=== PATIENT | female | born 1995 | race African-American/Black ===

== ENCOUNTER 2016-06-22 18:23 | Emergency (ER) | payer OTHER ==
[~2016-06-22] VITALS: Ht 170.2 cm; Wt 104.5 kg
[~2016-06-22 18:23] MED LIST: ZOVI400T15 PO
[2016-06-22 18:27] VITALS: BP 111/65; PULSE 90; RESP 16; TEMP 98.1; O2SAT 99
== END 2016-06-22 19:34 | disposition left against medical advice (07) ==
LOC: NED 18:23
DX: R30.0 Dysuria (principal)
CPT/HCPCS: 99281

== ENCOUNTER 2016-10-18 23:49 | Emergency (ER) | payer OTHER ==
[2016-10-18 23:50] VITALS: BP 139/83; PULSE 78; RESP 16; TEMP 98.7; O2SAT 98
[2016-10-19 02:24] VITALS: BP 129/81; PULSE 80; RESP 19; TEMP 98.5; O2SAT 99
--- NOTE | 2016-10-19 03:56 | PD ---
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 She reports that she is sexually active. She reports that she does not use condoms. She reports that she has not been with any new partners and is not concerned about sexually transmitted infections. The patient denies having any vaginal discharge associated with this. She reports that the bump became more painful today, thus prompting the visit to the emergency department. A review of systems, the patient denies any recent fevers, cough, congestion, neck pain, chest pain, shortness of breath, abdominal pain, vomiting, urinary symptoms, or neurologic symptoms. She does however report having diarrhea since yesterday, 3 times. She denies having any blood in her stool or black or tarry stools. LMP: October 18, 2016, her cycle ended. PFSH Past Medical History Narrative Medical The patient's past medical history is significant for anemia, asthma, Anemia: Yes Asthma: Yes Autoimmune Disease: No Blood Disorders: No Anxiety: No Depression: No Heart Rhythm Problems: No Cancer: No Cardiovascular Problems: Yes (ANEMIA) High Cholesterol: No Chemotherapy: No Chest Pain: No Congestive Heart Failure: No COPD: No Developmental Delay: No Diabetes: No Diminished Hearing: No Endocrine: No Genitourinary: No Immune Disorder: No Musculoskeletal: No Neurologic: No Psychiatric: No Reproductive: No Respiratory: Yes Immunizations Current: Yes Radiation Therapy: No Sleep Apnea: No Thyroid Disease: No Tetanus Vaccination: < 5 Years ?: Not LMP: 10/18/16 Menopausal: No : 0 Para: 1 Miscarriage: 1 : 0 Past Surgical History Narrative Surgical The patient's past surgical history is reportedly none. Surgical History: No Previous Surgery Other Surgery: No Social History Alcohol Use: No Tobacco Use: Yes Substance Use: No Allergies-Medications (Allergen,Severity, Reaction): Coded Allergies: No Known Allergies (Unverified , 10/19/16) Reported Meds & Prescriptions Reported Meds & Active Scripts Active Keflex (Cephalexin) 500 Mg Cap 500 Mg PO Q6H Flagyl (Metronidazole) 500 Mg Tab 500 Mg PO BID 7 Days Zovirax (Acyclovir) 400 Mg Tab 400 Mg PO 5 TIMES A DAY 7 Days Review of Systems Except as stated in HPI: all other systems reviewed are Neg General / Constitutional: No: Fever Eyes: No: Visual changes HENT: No: Headaches Cardiovascular: No: Chest Pain or Discomfort Respiratory: No: Shortness of Breath Gastrointestinal: Positive: Diarrhea, Changes in Bowel Habits, No: Nausea, Vomiting, Abdominal Pain, Hematemesis, Hematochezia, Constipation, Indigestion, Loss of Appetite Genitourinary: Positive: Other (a bump along the vaginal area), No: Dysuria Musculoskeletal: No: Pain Skin: No Rash Neurologic: No: Weakness Psychiatric: No: Depression Endocrine: No: Polydipsia Hematologic/Lymphatic: No: Easy Bruising Physical Exam Narrative General: The patient is a well-developed well-nourished female in no acute distress. Head and Neck exam: Head is normocephalic atraumatic. Eyes: EOMI, pupils are equal round and reactive to light. Nose: Midline septum with pink mucous membranes Mouth: Dentition unremarkable. Moist mucus membranes. Posterior oropharynx is not erythematous. No tonsillar hypertrophy. Uvula midline. Airway patent. Neck: No palpable lymphadenopathy. No nuchal rigidity. No thyromegaly. Cardiovascular: Regular rate and rhythm without murmurs, gallops, or rubs. Lungs: Clear to auscultation bilaterally. No wheezes, rhonchi, or rales. Abdomen: Soft, without tenderness to palpation in all 4 quadrants of the abdomen. No guarding, rebound, or rigidity. Normal bowel sounds are audible. No tenderness on palpation of McBurney's point. Negative Falk's sign. Extremities: No clubbing, cyanosis, or edema. No calf tenderness on palpation. Back: No costovertebral angle tenderness to palpation. Neurologic Exam: Grossly nonfocal. Skin Exam: The patient on examination is noted to have areas of inflammation along the hairline surrounding a few hair follicles of the inner thigh and mons pubis as well as the labia majora consistent with a folliculitis. Gynecologic exam: The patient was placed in the dorsal lithotomy position. Her external genitalia were examined. She has an area of folliculitis noted along the right labia majora. This is tender to palpation. There is no focal area of fluctuance. There is pointing. The speculum was placed into her vagina and the cervix was identified. She had a physiologic appearing clear white discharge with an odor noted. No cervical friability. On Bimanual exam: she has no cervical motion tenderness. No adnexal tenderness or prominence noted on palpation. No uterine tenderness or enlargement noted on palpation. Data Data Last Documented VS Vital Signs Date Time Temp Pulse Resp B/P Pulse Ox O2 Delivery O2 Flow Rate FiO2 10/19/16 02:24 98.5 80 19 129/81 99 Room Air Orders Gc And Chlamydia Pcr (10/19/16 02:37) Wet Prep Profile (10/19/16 02:37) Urinalysis - C+S If Indicated (10/19/16 02:37) Herpes Simplex Virus Culture (10/19/16 02:37) Ed Urine Pregnancytest Poc (10/19/16 02:37) Labs Laboratory Tests Test 10/19/16 03:55 Urine Color YELLOW Urine Turbidity HAZY Urine pH 6.0 Urine Specific [place] 1.040 Urine Protein 30 mg/dL Urine Glucose (UA) NEG mg/dL Urine Ketones NEG mg/dL Urine Occult Blood NEG Urine Nitrite NEG Urine Bilirubin NEG Urine Urobilinogen 2.0 MG/DL Urine Leukocyte Esterase SMALL Urine RBC 1 /hpf Urine WBC 2 /hpf Urine Squamous Epithelial 4 /hpf Cells Urine Calcium Oxalate Crystals FEW /hpf Urine Bacteria OCC /hpf Urine Hyaline Casts 1 /lpf Urine Mucus MOD /lpf Microscopic Urinalysis Comment CULT NOT INDICATED Clue Cells (Wet Prep) PRESENT Vaginal Trichomonas (Wet Prep) NONE SEEN Vaginal Yeast (Wet Prep) NONE SEEN MDM Medical Decision Making Medical Screen Exam Complete: Yes Emergency Medical Condition: Yes Medical Record Reviewed: Yes Differential Diagnosis Bacterial vaginosis, versus gonorrhea, versus chlamydia, versus folliculitis, versus herpes simplex Narrative Course During the course of the patients emergency department visit, the patients history, examination, and differential diagnosis were reviewed with the patient. The patient had a urine sent for analysis, wet prep and GC chlamydia sent from a pelvic examination, a urine test was done at the bedside and was negative. The patients laboratory studies were reviewed and remarkable for a urinalysis that was unremarkable. Wet prep was positive for clue cells. The patient will be discharged home with Keflex for a folliculitis and Flagyl for bacterial vaginosis. The patient is resting comfortably and feels better, is alert and in no distress. The patients results and examination findings were discussed with the patient. The repeat examination is unremarkable and benign. The history, exam, diagnostic testing, and current condition do not suggest any significant pathology to warrant further testing, continued ED treatment, admission, or surgical evaluation at this point. The vital signs have been stable. The patient does not have uncontrollable pain, intractable vomiting, or other significant symptoms. The patient's condition is stable and appropriate for discharge. The patient will pursue further outpatient evaluation with a primary care physician or other designated or consulting physician as indicated in the discharge instructions. The patient expressed understanding and was agreeable with this plan. Diagnosis Primary Impression: Bacterial vaginosis Additional Impression: Folliculitis Referrals: Can Technician 1 week Patient Instructions: Bacterial Vaginosis (ED), Folliculitis (ED), General Instructions Med/Other Pt SpecificInfo: Prescription(s) given Scripts Cephalexin (Keflex)500 Mg [id number] Mg PO Q6H #40 CAP Ref 0 Prov:Jen Nails MD 10/19/16 Metronidazole (Flagyl)500 Mg [id number] Mg PO BID 7 Days Ref 0 Prov:Jen Nails MD 10/19/16 Disposition: 01 DISCHARGE HOME Condition: Stable Jen Nails MD October 19, 2016 03:56
[2016-10-19 04:27] LABS: BACTERIA, URINE OCC /hpf; BLOOD, URINE NEG (NEG); CALCIUM OXALATE CRYSTALS,URINE FEW /hpf; COMMENT (UR) CULT NOT INDICATED; CULTURE IF INDICATED CULT NOT INDICATED; GLUCOSE,URINE NEG (NEG); HYALINE CAST, URINE 1 /lpf (RARE); KETONE, URINE NEG (NEG); MUCUS URINE MOD /lpf (OCC); NITRITE,URINE NEG (NEG); SQUAMOUS EPITHELIAL CELL URINE 4 /hpf (0-5); URINE COLOR YELLOW (YELLW/STRAW)
[2016-10-19] MEDS ORDERED: METR-1 PO (05:18)
[2016-10-19] MEDS ORDERED: CEPH-460 PO (05:18)
[2016-10-19 06:11] LABS: CHLAMYDIA PCR NOT DETECTED (NOT DETECT); NEISSERIA PCR NOT DETECTED (NOT DETECT)
== END 2016-10-19 05:46 | disposition home or self-care (01) ==
LOC: NEPE 23:49
DX: N76.0 Acute vaginitis (principal); L73.8 Other specified follicular disorders; R19.7 Diarrhea, unspecified; Z72.0 Tobacco use; Z86.2 Personal history of diseases of the blood and blood-forming organs and certain disorders involving the immune mechanism; Z87.09 Personal history of other diseases of the respiratory system
CPT/HCPCS: 81001; 84703; 87210; 87491; 87591; 99283

== ENCOUNTER 2016-12-29 14:28 | Emergency (ER) | payer OTHER ==
[~2016-12-29] VITALS: Ht 170.2 cm; Wt 105.0 kg
[~2016-12-29 14:28] MED LIST changes: +CEPH-460 PO; +METR-1 PO
[2016-12-29] MEDS ORDERED: SODIUM CHLOR 0.9% 1000 ML INJ 1,000 ML IV SCH (14:42)
[2016-12-29] MEDS ORDERED: SODIUM CHLORIDE 0.9% FLUSH 10 ML FLUSH IV FLUSH PRN (14:45)
[2016-12-29] MEDS ORDERED: HYDROmorphone HCL PF 1 MG/ML VIAL IVS ONE (14:45)
[2016-12-29] MEDS ORDERED: ONDANSETRON HCL 4 MG/2 ML VIAL IVP ONE (14:45)
--- NOTE | 2016-12-29 14:56 | PD ---
HPI Chief Complaint: abdominal pain. Time Seen by Provider: 14:37 Travel History International Travel<30 days: No Contact w/Intl Traveler<30days: No History of Present Illness HPI This is a 21-year-old female who presents to the emergency department with an hour and half of right lower quadrant abdominal pain, severe, 10 out of 10 with pain in her right flank, constant area she denies any vaginal discharge, vaginal bleeding, dysuria or hematuria. She does say her urine has been dark. She says she hasn't had a menstrual cycle in 2 months. She's never had pain like this before. PFSH Past Medical History Anemia: Yes Asthma: Yes Autoimmune Disease: No Blood Disorders: No Anxiety: No Depression: No Heart Rhythm Problems: No Cancer: No Cardiovascular Problems: Yes (ANEMIA) High Cholesterol: No Chemotherapy: No Chest Pain: No Congestive Heart Failure: No COPD: No Developmental Delay: No Diabetes: No Diminished Hearing: No Endocrine: No Genitourinary: No Immune Disorder: No Musculoskeletal: No Neurologic: No Psychiatric: No Reproductive: No Respiratory: Yes Immunizations Current: Yes Radiation Therapy: No Sleep Apnea: No Thyroid Disease: No Menopausal: No : 0 Para: 1 Miscarriage: 1 : 0 Past Surgical History Other Surgery: No Social History Alcohol Use: No Tobacco Use: Yes Substance Use: No Allergies-Medications (Allergen,Severity, Reaction): Coded Allergies: No Known Allergies (Unverified , 12/29/16) Reported Meds & Prescriptions Reported Meds & Active Scripts Active No Active Prescriptions or Reported Medications Review of Systems Except as stated in HPI: all other systems reviewed are Neg Physical Exam Narrative GENERAL: Uncomfortable appearing. SKIN: Focused skin assessment warm and dry. HEAD: Atraumatic. Normocephalic. EYES: Pupils equal and round. No injection or drainage. ENT: Moist mucous membranes NECK: Trachea midline. CARDIOVASCULAR: Regular rate and rhythm. No murmur appreciated. RESPIRATORY: Clear to auscultation. Breath sounds equal bilaterally. GASTROINTESTINAL: Abdomen soft, tender to palpation in the right lower quadrant with no rebound or guarding. 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 MUSCULOSKELETAL: No obvious deformities. NEUROLOGICAL: Awake and alert. No obvious cranial nerve deficits. Moving all extremities. PSYCHIATRIC: Appropriate mood and affect; insight and judgment normal. Data Data Last Documented VS Vital Signs Date Time Temp Pulse Resp B/P Pulse Ox O2 Delivery O2 Flow Rate FiO2 12/29/16 15:31 68 16 106/59 100 Room Air 12/29/16 15:29 98.1 Orders Complete Blood Count With Diff (12/29/16 14:42) Comprehensive Metabolic Panel (12/29/16 14:42) Lipase (12/29/16 14:42) Urinalysis - C+S If Indicated (12/29/16 14:42) Iv Access Insert/Monitor (12/29/16 14:42) Ecg Monitoring (12/29/16 14:42) Oximetry (12/29/16 14:42) Ondansetron Inj (Zofran Inj) (12/29/16 14:45) Sodium Chlor 0.9% 1000 Ml Inj (Ns 1000 M (12/29/16 14:42) Sodium Chloride 0.9% Flush (Ns Flush) (12/29/16 14:45) Hydromorphone Pf Inj (Dilaudid Pf Inj) (12/29/16 14:45) Ed Urine Pregnancytest Poc (12/29/16 14:42) Ct Abd/Pel W Iv Contrast(Rout) (12/29/16 ) Us Pelvis Comp W Doppler (12/29/16 ) Wet Prep Profile (12/29/16 16:36) Gc And Chlamydia Pcr (12/29/16 16:36) Labs Laboratory Tests Test 12/29/16 12/29/16 14:55 15:00 White Blood Count 8.3 TH/MM3 Red Blood Count 4.81 MIL/MM3 Hemoglobin 12.1 GM/DL Hematocrit 36.9 % Mean Corpuscular Volume 76.7 FL Mean Corpuscular Hemoglobin 25.1 PG Mean Corpuscular Hemoglobin 32.7 % Concent Red Cell Distribution Width 14.7 % Platelet Count 264 TH/MM3 Mean Platelet Volume 7.0 FL Neutrophils (%) (Auto) 74.5 % Lymphocytes (%) (Auto) 16.9 % Monocytes (%) (Auto) 7.3 % Eosinophils (%) (Auto) 1.0 % Basophils (%) (Auto) 0.3 % Neutrophils # (Auto) 6.2 TH/MM3 Lymphocytes # (Auto) 1.4 TH/MM3 Monocytes # (Auto) 0.6 TH/MM3 Eosinophils # (Auto) 0.1 TH/MM3 Basophils # (Auto) 0.0 TH/MM3 CBC Comment DIFF FINAL Differential Comment Sodium Level 139 MEQ/L Potassium Level 4.4 MEQ/L Chloride Level 105 MEQ/L Carbon Dioxide Level 28.4 MEQ/L Anion Gap 6 MEQ/L Blood Urea Nitrogen 8 MG/DL Creatinine 0.87 MG/DL Estimat Glomerular Filtration 100 ML/MIN Rate Random Glucose 93 MG/DL Calcium Level 8.8 MG/DL Total Bilirubin 0.1 MG/DL Aspartate Amino Transf 12 U/L (AST/SGOT) Alanine Aminotransferase 15 U/L (ALT/SGPT) Alkaline Phosphatase 75 U/L Total Protein 7.4 GM/DL Albumin 3.1 GM/DL Lipase 88 U/L Urine Color YELLOW Urine Turbidity CLEAR Urine pH 7.0 Urine Specific [place] 1.020 Urine Protein NEG mg/dL Urine Glucose (UA) NEG mg/dL Urine Ketones NEG mg/dL Urine Occult Blood NEG Urine Nitrite NEG Urine Bilirubin NEG Urine Urobilinogen LESS THAN 2.0 MG/DL Urine Leukocyte Esterase NEG Urine RBC LESS THAN 1 /hpf Urine WBC 1 /hpf Urine Squamous Epithelial 1 /hpf Cells Urine Mucus FEW /lpf Microscopic Urinalysis Comment CULT NOT INDICATED MDM Medical Decision Making Medical Screen Exam Complete: Yes Emergency Medical Condition: Yes Interpretation(s) Afebrile, no tachycardia, normotensive No leukocytosis Electrolytes are reassuring Lipase is normal Urinalysis: No infection Differential Diagnosis Ovarian cyst, ovarian torsion, tubo-ovarian abscess, kidney stone, appendicitis Narrative Course This is a 21-year-old female who presents with fairly abrupt onset right lower quadrant abdominal pain. She is quite uncomfortable appearing on arrival. Labs were obtained which were reassuring. Urinalysis is negative for blood or infection. Pelvic exam is fairly benign. Pelvic ultrasound demonstrates a 2 cm cyst on the right ovary with no evidence of torsion. CT is pending and patient likely be discharged if reassuring. Scripts No Active Prescriptions or Reported Meds Stefania Cook MD Dec 29, 2016 14:56
[2016-12-29 15:29] VITALS: BP 106/59; PULSE 60; RESP 14; TEMP 98.1; O2SAT 100
[2016-12-29 15:31] VITALS: BP 106/59; PULSE 68; RESP 16; O2SAT 100
[2016-12-29 15:33] LABS: AUTOMATED NEUTROPHIL # 6.2 TH/MM3 (1.8-7.7); BASOPHIL % 0.3 % (0.0-2.0); EOSINOPHIL # 0.1 TH/MM3 (0-0.4); HEMATOCRIT 36.9 % (35.0-46.0); HEMO FLAGS DIFF FINAL; LYMPH % 16.9 % (9.0-44.0); LYMPHOCYTE # 1.4 TH/MM3 (1.0-4.8); MEAN CELL VOLUME 76.7 FL (80.0-100.0); MEAN CORPUSCULAR HEMOGLOBIN 25.1 PG (27.0-34.0); MEAN CORPUSCULAR HGB CONC 32.7 % (32.0-36.0); MONO % 7.3 % (0.0-8.0); NEUT % 74.5 % (16.0-70.0); PLATELET COUNT 264 TH/MM3 (150-450); RED BLOOD COUNT 4.81 MIL/MM3 (4.00-5.30); RED CELL DISTRIBUTION WIDTH 14.7 % (11.6-17.2); WHITE BLOOD COUNT 8.3 TH/MM3 (4.0-11.0)
[2016-12-29 15:39] LABS: BLOOD, URINE NEG (NEG); COMMENT (UR) CULT NOT INDICATED; CULTURE IF INDICATED CULT NOT INDICATED; GLUCOSE,URINE NEG (NEG); KETONE, URINE NEG (NEG); MUCUS URINE FEW /lpf (OCC); NITRITE,URINE NEG (NEG); SQUAMOUS EPITHELIAL CELL URINE 1 /hpf (0-5); URINE COLOR YELLOW (YELLW/STRAW)
[2016-12-29 15:55] LABS: ALT (GPT) 15 U/L (9-42); ANION GAP 6 MEQ/L (5-15); AST (GOT) 12 U/L (16-38); BICARBONATE 28.4 MEQ/L (21.0-32.0); BLOOD UREA NITROGEN 8 MG/DL (7-18); CHLORIDE 105 MEQ/L (98-107); GLOMERULAR FILTRATION RATE 100 ML/MIN (>89); POTASSIUM 4.4 MEQ/L (3.5-5.1); SODIUM (NA) 139 MEQ/L (136-145)
[2016-12-29 15:58] LABS: ALKALINE PHOSPHATASE 75 U/L (45-117); TOTAL BILIRUBIN ADULT 0.1 MG/DL (0.2-1.0)
--- NOTE | 2016-12-29 16:49 | RADRPT ---
EXAM DATE/TIME: 12/29/2016 16:01 [facility] COMPARISON: CT ABDOMEN & PELVIS W CONTRAST, December 17, 2015, 17:03. INDICATIONS : Right adnexa pain. MEDICAL HISTORY : Anemia. Asthma. Vomiting. Pelvic pain. Abdominal pain. SURGICAL HISTORY : None. ENCOUNTER: Initial ACUITY: 1 day PAIN SCORE: 5/10 LOCATION: Right pelvis MEASUREMENTS: UTERUS: 5.3 x 4.9 x 3.2 cm ENDOMETRIAL STRIPE: 7 mm RIGHT OVARY: 4.6 x 2.9 x 3.5 cm LEFT OVARY: 3.1 x 1.3 x 1.5 cm FINDINGS: UTERUS: The myometrium has homogeneous echotexture without mass. RIGHT OVARY: 2.8 x 2.4 x 2.5 cm anechoic cyst. Normal vascularity and otherwise normal in size. LEFT OVARY: Ovary contains no mass or significant cystic lesion. Normal vascularity. MISCELLANEOUS: No free fluid. CONCLUSION: 1. 2.8 x 2.4 x 2.5 cm simple appearing right ovarian cyst. Right ovary appears normal at this time wi th normal vascularity, no evidence for torsion at this time. Although no further imaging is recommended for simple adnexal cysts less than 5 cm in women of reprod uctive age, ovarian cysts may predispose to ovarian torsion but usually when >5 cm in size. Ronald Wang MD on December 29, 2016 at 16:40 Board Certified Radiologist. This report was verified electronically.
[2016-12-29] MEDS ORDERED: IOHEXOL 350 MG/ML 10 ML VIAL (for RAD DIAG) IV ONE (17:10)
--- NOTE | 2016-12-29 17:26 | RADRPT ---
EXAM DATE/TIME: 12/29/2016 16:58 [facility] COMPARISON: CT ABDOMEN & PELVIS W CONTRAST, December 17, 2015, 17:03. INDICATIONS : Right-sided abdominal pain. IV CONTRAST: 95 cc Omnipaque 350 (iohexol) IV ORAL CONTRAST: No oral contrast ingested. RADIATION DOSE: 24.16 CTDIvol (mGy) MEDICAL HISTORY : Cardiovascular disease. SURGICAL HISTORY : None. ENCOUNTER: Initial ACUITY: 1 day PAIN SCALE: 5/10 LOCATION: Right abdomen TECHNIQUE: Volumetric scanning of the abdomen and pelvis was performed. Using automated exposure control and adjustment of the mA and/or kV according to patient size, radiation dose was kept as low as reasonably achievable to obtain optimal diagnostic quality images. DICOM format image data is av ailable electronically for review and comparison. FINDINGS: LOWER LUNGS: Minimal bibasilar atelectasis. LIVER: Homogeneous density without lesion. There is no dilation of the biliary tree. No calcifi ed gallstones. SPLEEN: Normal size without lesion. PANCREAS: Within normal limits. KIDNEYS: Normal in size and shape. There is no mass, stone or hydronephrosis. ADRENAL GLANDS: Within normal limits. VASCULAR: There is no aortic aneurysm. BOWEL/MESENTERY: Appendix is visualized and normal in appearance. Bowel otherwise appears unremar kable without evidence for obstruction. No free air or pneumatosis. ABDOMINAL WALL: Within normal limits. RETROPERITONEUM: There is no significant lymphadenopathy. BLADDER: No wall thickening or mass. REPRODUCTIVE: Redemonstration right adnexal cyst. Uterus is unremarkable for age. Trace free flui d in the pelvis is likely physiologic. INGUINAL: There is no lymphadenopathy or hernia. MUSCULOSKELETAL: Within normal limits for patient age. CONCLUSION: 1. Normal appendix. 2. Right adnexal cyst consistent with ovarian cyst noted on ultrasound exam. 3. Otherwise, unremarkable CT examination of the abdomen and pelvis. Ronald Wang MD on December 29, 2016 at 17:20 Board Certified Radiologist. This report was verified electronically.
[2016-12-29] MEDS ORDERED: HYDROmorphone HCL PF 1 MG/ML VIAL IV PUSH ONE (17:30)
--- NOTE | 2016-12-29 17:33 | PD ---
Physical Exam Date Seen by Provider: Dec 29, 2016 Time Seen by Provider: 17:32 Narrative The patient is a 21-year-old female was initially evaluated by the previous physician, Dr. Cook. Please refer to the initial history, physical, diagnostic evaluation, and treatment modality plan. The patient was signed out at [address] the abdomen and pelvis and wet prep pending. Data Data Last Documented VS Vital Signs Date Time Temp Pulse Resp B/P Pulse Ox O2 Delivery O2 Flow Rate FiO2 12/29/16 17:51 69 16 103/55 100 Room Air 12/29/16 15:29 98.1 Orders Complete Blood Count With Diff (12/29/16 14:42) Comprehensive Metabolic Panel (12/29/16 14:42) Lipase (12/29/16 14:42) Urinalysis - C+S If Indicated (12/29/16 14:42) Iv Access Insert/Monitor (12/29/16 14:42) Ecg Monitoring (12/29/16 14:42) Oximetry (12/29/16 14:42) Ondansetron Inj (Zofran Inj) (12/29/16 14:45) Sodium Chlor 0.9% 1000 Ml Inj (Ns 1000 M (12/29/16 14:42) Sodium Chloride 0.9% Flush (Ns Flush) (12/29/16 14:45) Hydromorphone Pf Inj (Dilaudid Pf Inj) (12/29/16 14:45) Ed Urine Pregnancytest Poc (12/29/16 14:42) Ct Abd/Pel W Iv Contrast(Rout) (12/29/16 ) Us Pelvis Comp W Doppler (12/29/16 ) Wet Prep Profile (12/29/16 16:36) Gc And Chlamydia Pcr (12/29/16 16:36) Iohexol 350 Inj (Omnipaque 350 Inj) (12/29/16 17:10) Hydromorphone Pf Inj (Dilaudid Pf Inj) (12/29/16 17:30) Labs Laboratory Tests Test 12/29/16 12/29/16 12/29/16 14:55 15:00 16:45 White Blood Count 8.3 TH/MM3 Red Blood Count 4.81 MIL/MM3 Hemoglobin 12.1 GM/DL Hematocrit 36.9 % Mean Corpuscular Volume 76.7 FL Mean Corpuscular Hemoglobin 25.1 PG Mean Corpuscular Hemoglobin 32.7 % Concent Red Cell Distribution Width 14.7 % Platelet Count 264 TH/MM3 Mean Platelet Volume 7.0 FL Neutrophils (%) (Auto) 74.5 % Lymphocytes (%) (Auto) 16.9 % Monocytes (%) (Auto) 7.3 % Eosinophils (%) (Auto) 1.0 % Basophils (%) (Auto) 0.3 % Neutrophils # (Auto) 6.2 TH/MM3 Lymphocytes # (Auto) 1.4 TH/MM3 Monocytes # (Auto) 0.6 TH/MM3 Eosinophils # (Auto) 0.1 TH/MM3 Basophils # (Auto) 0.0 TH/MM3 CBC Comment DIFF FINAL Differential Comment Sodium Level 139 MEQ/L Potassium Level 4.4 MEQ/L Chloride Level 105 MEQ/L Carbon Dioxide Level 28.4 MEQ/L Anion Gap 6 MEQ/L Blood Urea Nitrogen 8 MG/DL Creatinine 0.87 MG/DL Estimat Glomerular Filtration 100 ML/MIN Rate Random Glucose 93 MG/DL Calcium Level 8.8 MG/DL Total Bilirubin 0.1 MG/DL Aspartate Amino Transf 12 U/L (AST/SGOT) Alanine Aminotransferase 15 U/L (ALT/SGPT) Alkaline Phosphatase 75 U/L Total Protein 7.4 GM/DL Albumin 3.1 GM/DL Lipase 88 U/L Urine Color YELLOW Urine Turbidity CLEAR Urine pH 7.0 Urine Specific [place] 1.020 Urine Protein NEG mg/dL Urine Glucose (UA) NEG mg/dL Urine Ketones NEG mg/dL Urine Occult Blood NEG Urine Nitrite NEG Urine Bilirubin NEG Urine Urobilinogen LESS THAN 2.0 MG/DL Urine Leukocyte Esterase NEG Urine RBC LESS THAN 1 /hpf Urine WBC 1 /hpf Urine Squamous Epithelial 1 /hpf Cells Urine Mucus FEW /lpf Microscopic Urinalysis Comment CULT NOT INDICATED Clue Cells (Wet Prep) PRESENT Vaginal Trichomonas (Wet Prep) NONE SEEN Vaginal Yeast (Wet Prep) NONE SEEN MDM Medical Record Reviewed: Yes Supervised Visit with GABINO: No Interpretation(s) Last Impressions Pelvis Ultrasound 12/29/16 0000 Signed Impressions: Service Date/Time: Thursday, December 29, 2016 16:01 - CONCLUSION: 1. 2.8 x 2.4 x 2.5 cm simple appearing right ovarian cyst. Right ovary appears normal at this time with normal vascularity, no evidence for torsion at this time. Although no further imaging is recommended for simple adnexal cysts less than 5 cm in women of reproductive age, ovarian cysts may predispose to ovarian torsion but usually when >5 cm in size. Ronald Wang MD Abdomen/Pelvis CT 12/29/16 0000 Signed Impressions: Service Date/Time: Thursday, December 29, 2016 16:58 - CONCLUSION: 1. Normal appendix. 2. Right adnexal cyst consistent with ovarian cyst noted on ultrasound exam. 3. Otherwise, unremarkable CT examination of the abdomen and pelvis. Ronald Wang MD Laboratory Tests Test 12/29/16 12/29/16 12/29/16 14:55 15:00 16:45 White Blood Count 8.3 TH/MM3 Red Blood Count 4.81 MIL/MM3 Hemoglobin 12.1 GM/DL Hematocrit 36.9 % Mean Corpuscular Volume 76.7 FL Mean Corpuscular Hemoglobin 25.1 PG Mean Corpuscular Hemoglobin 32.7 % Concent Red Cell Distribution Width 14.7 % Platelet Count 264 TH/MM3 Mean Platelet Volume 7.0 FL Neutrophils (%) (Auto) 74.5 % Lymphocytes (%) (Auto) 16.9 % Monocytes (%) (Auto) 7.3 % Eosinophils (%) (Auto) 1.0 % Basophils (%) (Auto) 0.3 % Neutrophils # (Auto) 6.2 TH/MM3 Lymphocytes # (Auto) 1.4 TH/MM3 Monocytes # (Auto) 0.6 TH/MM3 Eosinophils # (Auto) 0.1 TH/MM3 Basophils # (Auto) 0.0 TH/MM3 CBC Comment DIFF FINAL Differential Comment Sodium Level 139 MEQ/L Potassium Level 4.4 MEQ/L Chloride Level 105 MEQ/L Carbon Dioxide Level 28.4 MEQ/L Anion Gap 6 MEQ/L Blood Urea Nitrogen 8 MG/DL Creatinine 0.87 MG/DL Estimat Glomerular Filtration 100 ML/MIN Rate Random Glucose 93 MG/DL Calcium Level 8.8 MG/DL Total Bilirubin 0.1 MG/DL Aspartate Amino Transf 12 U/L (AST/SGOT) Alanine Aminotransferase 15 U/L (ALT/SGPT) Alkaline Phosphatase 75 U/L Total Protein 7.4 GM/DL Albumin 3.1 GM/DL Lipase 88 U/L Urine Color YELLOW Urine Turbidity CLEAR Urine pH 7.0 Urine Specific [place] 1.020 Urine Protein NEG mg/dL Urine Glucose (UA) NEG mg/dL Urine Ketones NEG mg/dL Urine Occult Blood NEG Urine Nitrite NEG Urine Bilirubin NEG Urine Urobilinogen LESS THAN 2.0 MG/DL Urine Leukocyte Esterase NEG Urine RBC LESS THAN 1 /hpf Urine WBC 1 /hpf Urine Squamous Epithelial 1 /hpf Cells Urine Mucus FEW /lpf Microscopic Urinalysis Comment CULT NOT INDICATED Clue Cells (Wet Prep) PRESENT Vaginal Trichomonas (Wet Prep) NONE SEEN Vaginal Yeast (Wet Prep) NONE SEEN Differential Diagnosis Differential diagnosis includes ovarian torsion, ovarian cyst, appendicitis, UTI , pyelonephritis, cervicitis, PID, vaginitis. Narrative Course The patient was initially evaluated by the previous physician, Dr. Cook. Please refer to the initial history, physical, diagnostic evaluation, and treatment modality plan. The patient was signed out of [address] of the abdomen and pelvis and wet prep pending. Ultrasound did reveal a right ovarian cyst less than 5 cm in diameter. Ultrasound reveals a normal appendix. UA is unremarkable. Wet prep is positive for clue cells, therefore, patient will be treated with Flagyl twice a day for 7 days. However, the mother thinks the patient had an allergic reaction to Flagyl. Therefore, the patient will be placed on clindamycin 300 mg twice a day for 7 days. She will be provided a copy of her CT results and ultrasound results as well as lab results at discharge. Diagnosis Primary Impression: Right ovarian cyst Additional Impression: Bacterial vaginosis Patient Instructions: General Instructions Additional Instruction: Medications as directed. Please provide the patient and her family a copy of the ultrasound results, CT results, and lab results at discharge. Follow-up with a telecommunication lines repairer. Return if symptoms worsen or progress. Med/Other Pt SpecificInfo: Prescription(s) given Scripts Hydrocodone-Acetaminophen ([place])5-325 mg Tab1 Tab PO Q6H PRN (PAIN) #12 TAB Ref 0 Prov:Vinh Wen MD 12/29/16 Ibuprofen 600 Mg [id number] Mg PO Q6H PRN (Pain/Inflammation) #20 TAB Ref 0 Prov:Vinh Wen MD 12/29/16 Clindamycin (Cleocin)150 Mg [id number] Mg PO BID 7 Days Ref 0 Prov:Vinh Wen MD 12/29/16 Disposition: 01 DISCHARGE HOME Condition: Stable Vinh Wen MD Dec 29, 2016 17:33
[2016-12-29 17:51] VITALS: BP 103/55; PULSE 69; RESP 16; O2SAT 100
[2016-12-29] MEDS ORDERED: IBUP-232 PO (18:16)
[2016-12-29] MEDS ORDERED: CLIN150 PO (18:16)
[2016-12-29] MEDS ORDERED: NORC5TAB PO (18:16)
[2016-12-29 19:34] LABS: CHLAMYDIA PCR NOT DETECTED (NOT DETECT); NEISSERIA PCR NOT DETECTED (NOT DETECT)
== END 2016-12-29 18:38 | disposition home or self-care (01) ==
LOC: NEPD 14:28
DX: N83.201 Unspecified ovarian cyst, right side (principal); N76.0 Acute vaginitis; Z72.0 Tobacco use
CPT/HCPCS: 74177; 76856; 80053; 81001; 83690; 84703; 85025; 87210; 87491; 87591; 93975; 96361; 96374; 96375; 96376; 99285; J1170; J2405; J7030; Q9967

== ENCOUNTER 2017-03-15 19:04 | Emergency (ER) | payer MEDICAID, OTHER ==
[~2017-03-15 19:04] MED LIST changes: -CEPH-460 PO; +CLIN150 PO; +IBUP-232 PO; -METR-1 PO; +NORC5TAB PO; -ZOVI400T15 PO
[2017-03-15] MEDS ORDERED: IOHEXOL 350 MG/ML 10 ML VIAL (for RAD DIAG) IVCONTRAST ONE (19:05)
[2017-03-15 19:07] VITALS: BP 138/77; PULSE 86; RESP 16; TEMP 98.8; O2SAT 98
--- NOTE | 2017-03-15 21:31 | PD ---
HPI Chief Complaint: Abdominal Pain Time Seen by Provider: 21:07 Travel History International Travel<30 days: No Contact w/Intl Traveler<30days: No Traveled to known affect area: No History of Present Illness HPI 21-year-old female complains of abdominal pain, nausea vomiting diarrhea, itching rash. Patient states that she was diagnosed with right ovarian cyst in December of this year. Patient states that she started having right low quadrant abdominal pain with nausea vomiting diarrhea since yesterday. Patient states the pain has been persistent since then. Patient states the pain is sharp pain cramping pain localized to right low quadrant of the abdomen. Patient denies any pain radiation. Patient denies any fever chills. Patient denies any dysuria or frequency. Patient denies any vaginal discharge or bleeding. Patient complains of itching rash on the chest and abdomen for the past 3 days. Patient states the probably something she came in contact with. Patient denies any history of scabies exposure. PFSH Past Medical History Anemia: Yes Asthma: Yes Autoimmune Disease: No Blood Disorders: No Anxiety: No Depression: No Heart Rhythm Problems: No Cancer: No Cardiovascular Problems: Yes (ANEMIA) High Cholesterol: No Chemotherapy: No Chest Pain: No Congestive Heart Failure: No COPD: No Developmental Delay: No Diabetes: No Diminished Hearing: No Endocrine: No Genitourinary: No Immune Disorder: No Musculoskeletal: No Neurologic: No Psychiatric: No Reproductive: No Respiratory: Yes (asthma) Immunizations Current: Yes Radiation Therapy: No Sleep Apnea: No Thyroid Disease: No ?: Not LMP: 02/14 Menopausal: No : 0 Para: 1 Miscarriage: 1 : 0 Past Surgical History Other Surgery: No Social History Alcohol Use: No Tobacco Use: Yes (1/2 pack day) Substance Use: No Allergies-Medications (Allergen,Severity, Reaction): Coded Allergies: cephalexin (Verified Allergy, Severe, 03/15/17) metronidazole (Verified Allergy, Severe, 03/15/17) Reported Meds & Prescriptions Reported Meds & Active Scripts Active No Active Prescriptions or Reported Medications Review of Systems General / Constitutional: No: Fever Eyes: No: Visual changes HENT: No: Headaches Cardiovascular: No: Chest Pain or Discomfort Respiratory: No: Shortness of Breath Gastrointestinal: Positive: Nausea, Vomiting, Diarrhea, Abdominal Pain Genitourinary: No: Dysuria Musculoskeletal: No: Pain Skin: No Rash Neurologic: No: Weakness Psychiatric: No: Depression Endocrine: No: Polydipsia Hematologic/Lymphatic: No: Easy Bruising Physical Exam Narrative GENERAL: Well-nourished, well-developed patient. SKIN: Focused skin assessment warm/dry. Patient has mild fine rash on the chest wall and abdominal wall. HEAD: Normocephalic. EYES: No scleral icterus. No injection or drainage. NECK: Supple, trachea midline. No JVD or lymphadenopathy. CARDIOVASCULAR: Regular rate and rhythm without murmurs, gallops, or rubs. RESPIRATORY: Breath sounds equal bilaterally. No accessory muscle use. GASTROINTESTINAL: Abdomen soft, nondistended. Patient has moderate tenderness on palpation right low quadrant the abdomen. No rebound tenderness. No mass. MUSCULOSKELETAL: No cyanosis, or edema. BACK: Nontender without obvious deformity. No CVA tenderness. Data Data Last Documented VS Vital Signs Date Time Temp Pulse Resp B/P (MAP) Pulse Ox O2 Delivery O2 Flow Rate FiO2 03/15/17 19:07 98.8 86 16 138/77 (97) 98 Orders Orders Complete Blood Count With Diff (03/15/17 21:14) Comprehensive Metabolic Panel (03/15/17 21:14) Lipase (03/15/17 21:14) Urinalysis - C+S If Indicated (03/15/17 21:14) Ct Abd/Pel W Iv Contrast(Rout) (03/15/17 21:14) Ed Urine Pregnancytest Poc (03/15/17 21:14) Ketorolac Inj (Toradol Inj) (03/15/17 23:00) Labs Laboratory Tests Test 03/15/17 21:28 03/15/17 22:30 White Blood Count 7.7 TH/MM3 Red Blood Count 4.86 MIL/MM3 Hemoglobin 12.1 GM/DL Hematocrit 37.4 % Mean Corpuscular Volume 76.9 FL Mean Corpuscular Hemoglobin 24.8 PG Mean Corpuscular Hemoglobin Concent 32.3 % Red Cell Distribution Width 15.1 % Platelet Count 341 TH/MM3 Mean Platelet Volume 6.6 FL Neutrophils (%) (Auto) 50.4 % Lymphocytes (%) (Auto) 37.9 % Monocytes (%) (Auto) 7.0 % Eosinophils (%) (Auto) 4.1 % Basophils (%) (Auto) 0.6 % Neutrophils # (Auto) 3.9 TH/MM3 Lymphocytes # (Auto) 2.9 TH/MM3 Monocytes # (Auto) 0.5 TH/MM3 Eosinophils # (Auto) 0.3 TH/MM3 Basophils # (Auto) 0.0 TH/MM3 CBC Comment DIFF FINAL Differential Comment Blood Urea Nitrogen 9 MG/DL Creatinine 0.89 MG/DL Random Glucose 87 MG/DL Total Protein 8.1 GM/DL Albumin 3.5 GM/DL Calcium Level 9.3 MG/DL Alkaline Phosphatase 75 U/L Aspartate Amino Transf (AST/SGOT) 14 U/L Alanine Aminotransferase (ALT/SGPT) 21 U/L Total Bilirubin LESS THAN 0.1 MG/DL Sodium Level 138 MEQ/L Potassium Level 3.7 MEQ/L Chloride Level 104 MEQ/L Carbon Dioxide Level 29.1 MEQ/L Anion Gap 5 MEQ/L Estimat Glomerular Filtration Rate 98 ML/MIN Lipase 96 U/L Urine Color YELLOW Urine Turbidity HAZY Urine pH 5.5 Urine Specific [place] 1.020 Urine Protein NEG mg/dL Urine Glucose (UA) NEG mg/dL Urine Ketones NEG mg/dL Urine Occult Blood NEG Urine Nitrite NEG Urine Bilirubin NEG Urine Urobilinogen LESS THAN 2.0 MG/DL Urine Leukocyte Esterase NEG Urine RBC 1 /hpf Urine WBC 2 /hpf Urine Squamous Epithelial Cells 3 /hpf Urine Mucus FEW /lpf Microscopic Urinalysis Comment CULT NOT INDICATED MDM Medical Decision Making Medical Screen Exam Complete: Yes Emergency Medical Condition: Yes Interpretation(s) 23:12 PM. CBC WBC 7.7. Normal differential. UA is negative. Differential Diagnosis Differential diagnosis including gastroenteritis, gastritis, PUD, pancreatitis, cholecystitis, colitis, UTI, pyelonephritis, nephrolithiasis, ovarian cyst, ovarian torsion, ectopic , PID. Patient rash could be contact dermatitis versus scabies. Narrative Course 21-year-old female with right low quadrant abdominal pain. History of right ovarian cyst. Patient also complains of itching rash on the chest and abdomen. Scripts No Active Prescriptions or Reported Meds Art Sharp MD Mar 15, 2017 21:31
[2017-03-15 21:40] LABS: AUTOMATED NEUTROPHIL # 3.9 TH/MM3 (1.8-7.7); BASOPHIL % 0.6 % (0.0-2.0); EOSINOPHIL # 0.3 TH/MM3 (0-0.4); EOSINOPHIL % 4.1 % (0.0-4.0); HEMATOCRIT 37.4 % (35.0-46.0); HEMO FLAGS DIFF FINAL; LYMPH % 37.9 % (9.0-44.0); LYMPHOCYTE # 2.9 TH/MM3 (1.0-4.8); MEAN CELL VOLUME 76.9 FL (80.0-100.0); MEAN CORPUSCULAR HEMOGLOBIN 24.8 PG (27.0-34.0); MEAN CORPUSCULAR HGB CONC 32.3 % (32.0-36.0); NEUT % 50.4 % (16.0-70.0); PLATELET COUNT 341 TH/MM3 (150-450); RED BLOOD COUNT 4.86 MIL/MM3 (4.00-5.30); RED CELL DISTRIBUTION WIDTH 15.1 % (11.6-17.2); WHITE BLOOD COUNT 7.7 TH/MM3 (4.0-11.0)
[2017-03-15 21:51] LABS: ALT (GPT) 21 U/L (9-42); ANION GAP 5 MEQ/L (5-15); AST (GOT) 14 U/L (16-38); BICARBONATE 29.1 MEQ/L (21.0-32.0); BLOOD UREA NITROGEN 9 MG/DL (7-18); CHLORIDE 104 MEQ/L (98-107); GLOMERULAR FILTRATION RATE 98 ML/MIN (>89); POTASSIUM 3.7 MEQ/L (3.5-5.1); SODIUM (NA) 138 MEQ/L (136-145)
[2017-03-15 21:54] LABS: ALKALINE PHOSPHATASE 75 U/L (45-117); TOTAL BILIRUBIN ADULT LESS THAN 0.1 MG/DL (0.2-1.0)
[2017-03-15 22:59] LABS: BLOOD, URINE NEG (NEG); COMMENT (UR) CULT NOT INDICATED; CULTURE IF INDICATED CULT NOT INDICATED; GLUCOSE,URINE NEG (NEG); KETONE, URINE NEG (NEG); MUCUS URINE FEW /lpf (OCC); NITRITE,URINE NEG (NEG); PH, URINE 5.5 (5.0-8.5); SQUAMOUS EPITHELIAL CELL URINE 3 /hpf (0-5); URINE COLOR YELLOW (YELLW/STRAW)
[2017-03-15] MEDS ORDERED: KETOROLAC TROMETHAMINE 30 MG/ML (IVP) VIAL IV PUSH ONE (23:00)
--- NOTE | 2017-03-16 01:46 | RADRPT ---
EXAM DATE/TIME: 03/16/2017 01:05 [facility] COMPARISON: CT ABDOMEN & PELVIS W CONTRAST, December 29, 2016, 16:58. INDICATIONS : Right lower quadrant pain with vomiting and diarrhea. IV CONTRAST: 95 cc Omnipaque 350 (iohexol) IV ORAL CONTRAST: No oral contrast ingested. RADIATION DOSE: 19.67 CTDIvol (mGy) ; Patient body habitus MEDICAL HISTORY : Asthma. Anemia. SURGICAL HISTORY : None. ENCOUNTER: Initial ACUITY: 1 day PAIN SCALE: 7/10 LOCATION: Right lower quadrant TECHNIQUE: Volumetric scanning of the abdomen and pelvis was performed. Using automated exposure control and ad justment of the mA and/or kV according to patient size, radiation dose was kept as low as reasonably achievable to obtain optimal diagnostic quality images. DICOM format image data is available electro nically for review and comparison. FINDINGS: LOWER LUNGS: The visualized lower lungs are clear. LIVER: Homogeneous density without lesion. There is no dilation of the biliary tree. No calcified gallston es. SPLEEN: Normal size without lesion. PANCREAS: Within normal limits. KIDNEYS: Normal in size and shape. There is no mass, stone or hydronephrosis. ADRENAL GLANDS: Within normal limits. VASCULAR: There is no aortic aneurysm. BOWEL/MESENTERY: The stomach, small bowel, and colon demonstrate no acute abnormality. There is no free intraperitone al air or fluid. Examination of the right lower quadrant demonstrates no abnormality. The appendix is identified and appears normal. ABDOMINAL WALL: Within normal limits. RETROPERITONEUM: There is no lymphadenopathy. BLADDER: No wall thickening or mass. REPRODUCTIVE: Within normal limits. INGUINAL: There is no lymphadenopathy or hernia. MUSCULOSKELETAL: Within normal limits for patient age. CONCLUSION: 1. No evidence of acute abdominal or pelvic process. No masses are identified. Yon Minor MD on March 16, 2017 at 1:43 Board Certified Radiologist. This report was verified electronically.
[2017-03-16] MEDS ORDERED: PRED20 PO (01:58)
[2017-03-16] MEDS ORDERED: IBUP800T23 PO (01:58)
--- NOTE | 2017-03-16 01:58 | PD ---
Physical Exam Date Seen by Provider: Mar 16, 2017 Time Seen by Provider: 01:55 Narrative For full history and physical examination please see previous provider's note. I assumed care of this patient at the end of my attendings shift. At that time where waiting for the results of his CT scan of the abdomen and pelvis to be resulted. Data Data Last Documented VS Vital Signs Date Time Temp Pulse Resp B/P (MAP) Pulse Ox O2 Delivery O2 Flow Rate FiO2 03/15/17 19:07 98.8 86 16 138/77 (97) 98 Orders Orders Complete Blood Count With Diff (03/15/17 21:14) Comprehensive Metabolic Panel (03/15/17 21:14) Lipase (03/15/17 21:14) Urinalysis - C+S If Indicated (03/15/17 21:14) Ct Abd/Pel W Iv Contrast(Rout) (03/15/17 21:14) Ed Urine Pregnancytest Poc (03/15/17 21:14) Ketorolac Inj (Toradol Inj) (03/15/17 23:00) Iohexol 350 Inj (Omnipaque 350 Inj) (03/15/17 19:05) Labs Laboratory Tests Test 03/15/17 21:28 03/15/17 22:30 White Blood Count 7.7 TH/MM3 Red Blood Count 4.86 MIL/MM3 Hemoglobin 12.1 GM/DL Hematocrit 37.4 % Mean Corpuscular Volume 76.9 FL Mean Corpuscular Hemoglobin 24.8 PG Mean Corpuscular Hemoglobin Concent 32.3 % Red Cell Distribution Width 15.1 % Platelet Count 341 TH/MM3 Mean Platelet Volume 6.6 FL Neutrophils (%) (Auto) 50.4 % Lymphocytes (%) (Auto) 37.9 % Monocytes (%) (Auto) 7.0 % Eosinophils (%) (Auto) 4.1 % Basophils (%) (Auto) 0.6 % Neutrophils # (Auto) 3.9 TH/MM3 Lymphocytes # (Auto) 2.9 TH/MM3 Monocytes # (Auto) 0.5 TH/MM3 Eosinophils # (Auto) 0.3 TH/MM3 Basophils # (Auto) 0.0 TH/MM3 CBC Comment DIFF FINAL Differential Comment Blood Urea Nitrogen 9 MG/DL Creatinine 0.89 MG/DL Random Glucose 87 MG/DL Total Protein 8.1 GM/DL Albumin 3.5 GM/DL Calcium Level 9.3 MG/DL Alkaline Phosphatase 75 U/L Aspartate Amino Transf (AST/SGOT) 14 U/L Alanine Aminotransferase (ALT/SGPT) 21 U/L Total Bilirubin LESS THAN 0.1 MG/DL Sodium Level 138 MEQ/L Potassium Level 3.7 MEQ/L Chloride Level 104 MEQ/L Carbon Dioxide Level 29.1 MEQ/L Anion Gap 5 MEQ/L Estimat Glomerular Filtration Rate 98 ML/MIN Lipase 96 U/L Urine Color YELLOW Urine Turbidity HAZY Urine pH 5.5 Urine Specific [place] 1.020 Urine Protein NEG mg/dL Urine Glucose (UA) NEG mg/dL Urine Ketones NEG mg/dL Urine Occult Blood NEG Urine Nitrite NEG Urine Bilirubin NEG Urine Urobilinogen LESS THAN 2.0 MG/DL Urine Leukocyte Esterase NEG Urine RBC 1 /hpf Urine WBC 2 /hpf Urine Squamous Epithelial Cells 3 /hpf Urine Mucus FEW /lpf Microscopic Urinalysis Comment CULT NOT INDICATED MDM Medical Record Reviewed: Yes Supervised Visit with GABINO: Yes Interpretation(s) Last Impressions Abdomen/Pelvis CT 03/15/172113 Signed Impressions: Service Date/Time: Thursday, March 16, 2017 01:05 - CONCLUSION: 1. No evidence of acute abdominal or pelvic process. No masses are identified. Yon Minor MD Laboratory Tests Test 03/15/17 21:28 03/15/17 22:30 White Blood Count 7.7 TH/MM3 Red Blood Count 4.86 MIL/MM3 Hemoglobin 12.1 GM/DL Hematocrit 37.4 % Mean Corpuscular Volume 76.9 FL Mean Corpuscular Hemoglobin 24.8 PG Mean Corpuscular Hemoglobin Concent 32.3 % Red Cell Distribution Width 15.1 % Platelet Count 341 TH/MM3 Mean Platelet Volume 6.6 FL Neutrophils (%) (Auto) 50.4 % Lymphocytes (%) (Auto) 37.9 % Monocytes (%) (Auto) 7.0 % Eosinophils (%) (Auto) 4.1 % Basophils (%) (Auto) 0.6 % Neutrophils # (Auto) 3.9 TH/MM3 Lymphocytes # (Auto) 2.9 TH/MM3 Monocytes # (Auto) 0.5 TH/MM3 Eosinophils # (Auto) 0.3 TH/MM3 Basophils # (Auto) 0.0 TH/MM3 CBC Comment DIFF FINAL Differential Comment Blood Urea Nitrogen 9 MG/DL Creatinine 0.89 MG/DL Random Glucose 87 MG/DL Total Protein 8.1 GM/DL Albumin 3.5 GM/DL Calcium Level 9.3 MG/DL Alkaline Phosphatase 75 U/L Aspartate Amino Transf (AST/SGOT) 14 U/L Alanine Aminotransferase (ALT/SGPT) 21 U/L Total Bilirubin LESS THAN 0.1 MG/DL Sodium Level 138 MEQ/L Potassium Level 3.7 MEQ/L Chloride Level 104 MEQ/L Carbon Dioxide Level 29.1 MEQ/L Anion Gap 5 MEQ/L Estimat Glomerular Filtration Rate 98 ML/MIN Lipase 96 U/L Urine Color YELLOW Urine Turbidity HAZY Urine pH 5.5 Urine Specific [place] 1.020 Urine Protein NEG mg/dL Urine Glucose (UA) NEG mg/dL Urine Ketones NEG mg/dL Urine Occult Blood NEG Urine Nitrite NEG Urine Bilirubin NEG Urine Urobilinogen LESS THAN 2.0 MG/DL Urine Leukocyte Esterase NEG Urine RBC 1 /hpf Urine WBC 2 /hpf Urine Squamous Epithelial Cells 3 /hpf Urine Mucus FEW /lpf Microscopic Urinalysis Comment CULT NOT INDICATED Vital Signs Date Time Temp Pulse Resp B/P (MAP) Pulse Ox O2 Delivery O2 Flow Rate FiO2 03/15/17 19:07 98.8 86 16 138/77 (97) 98 Narrative Course Patient is a 21-year-old female that presented to emergency for evaluation of a rash in right lower quadrant abdominal pain. Discussed with Dr. Sharp prior to the end of his shift. At that time the CT was pending. CT resulted with no acute abnormalities identified. At this time patient will be discharged home with ibuprofen and steroids for the nonspecific rash. Is encouraged to follow- up with her primary doctor and/or return to emergency department for any new or worsening symptoms. She was reassured at this time that there were no acute findings noted on exam. Diagnosis Primary Impression: Right lower quadrant abdominal pain Additional Impression: Rash and nonspecific skin eruption Referrals: Primary Care Physician 3 days Patient Instructions: Abdominal Pain (ED), Acute Rash (ED), General Instructions Additional Instruction: Follow-up with your primary doctor Return to emergency department for any new or worsening symptoms Take medication as needed and as directed for pain Med/Other Pt SpecificInfo: Prescription(s) given Scripts Ibuprofen (Ibuprofen) 800 Mg Tab 800 MG PO Q6HR Y for PAIN, #40 TAB 0 Refills Prov: Deepti Orr 03/16/17 Prednisone (Prednisone) 20 Mg Tab 20 MG PO DAILY for 7 Days, #7 TAB 0 Refills Prov: Deepti Orr 03/16/17 Disposition: 01 DISCHARGE HOME Condition: Stable Deepti Orr Mar 16, 2017 01:58
== END 2017-03-16 02:17 | disposition home or self-care (01) ==
LOC: NEPD 19:04
DX: R10.31 Right lower quadrant pain (principal); R21 Rash and other nonspecific skin eruption; R11.2 Nausea with vomiting, unspecified; R19.7 Diarrhea, unspecified; F17.200 Nicotine dependence, unspecified, uncomplicated; Z86.2 Personal history of diseases of the blood and blood-forming organs and certain disorders involving the immune mechanism; Z87.09 Personal history of other diseases of the respiratory system; Z87.42 Personal history of other diseases of the female genital tract
CPT/HCPCS: 74177; 80053; 81001; 83690; 84703; 85025; 96374; 99285; J1885; Q9967